=== PATIENT | male | born 1990 | race Caucasian/White ===

== ENCOUNTER 2023-12-31 15:30 | Emergency (ER) | payer OTHER, SELFPAY ==
[2023-12-31] VITALS (19 sets, daily range): BP systolic 115–155; BP diastolic 57–78; PULSE 88–108; RESP 16–20; TEMP 36.6–39.6; O2SAT 95–100; BMI 22.3
[2023-12-31] MEDS: SODIUM CHLORIDE 0.9% 1,000 ML 1000 ML IV ×2 (16:05→18:47)
[2023-12-31] MEDS: ONDANSETRON 4 MG/2 ML INJ IV ×2 (16:06→18:53)
[2023-12-31 16:10] LABS: Add Manual Diff / Slide Review NO; Basophils Absolute Auto 0 /uL (0-100); Basophils Percent Auto 0.3 % (0-2); Eosinophils Absolute Auto 0 /uL (0-450); Hematocrit 45.4 % (41-53); Hemoglobin 15.9 g/dL (13.5-17.5); Lymphocytes Absolute Auto 700 /uL (1100-4500); Lymphocytes Percent Auto 6.7 % (25-40); Mean Corpuscular Hemoglobin 29.7 PG (26-34); Monocytes Absolute Auto 1100 /uL (0-900); Neutrophils Absolute Auto 8000 /uL (1500-7000); Platelet Count 226 X10^3/uL (150-400); Red Blood Cell Count 5.34 X10^6/uL (4.5-5.9); Red Cell Distribution Width 12.9 % (11.6-14.8); White Blood Cell Count 9.7 X10^3/uL (4.5-11.0)
[2023-12-31 16:22] LABS: Alanine Aminotransferase 26 IU/L (<50); Albumin 4.6 g/dL (3.5-5.0); Albumin Globulin Ratio 1.5 (1.0-2.8); Alkaline Phosphatase 42 U/L (38-126); Aspartate Aminotransferase 36 IU/L (17-59); BUN Creatinine Ratio 9.7 (6-22); Bilirubin Total 0.9 mg/dL (0.2-1.3); Blood Urea Nitrogen 10 mg/dL (9-20); Calcium 8.9 mg/dL (8.4-10.2); Carbon Dioxide 23 mmol/L (22-32); Chloride 100 mmol/L (98-107); Estimated Glomerular Filt Rate > 60 mL/min (>60); Glucose 110 mg/dL (70-100); HEMOLYSIS 43 (0-50); Lipase 59 U/L (23-300); Potassium 3.6 mmol/L (3.4-5.1); Sodium 134 mmol/L (137-145); Total Protein 7.6 g/dL (6.3-8.2)
[2023-12-31 17:15] LABS: COVID19 -Nasal RAPID Negative (Negative)
[2023-12-31 17:38] LABS: Bacteria Urine Occasional (0-1); RBC Urine 0-1/HPF (0-5/HPF); Squamous Epithelial Cell Urine 1-5 /HPF (0-5/HPF); Urine Volume 10mL (spun); WBC Urine 1-5/HPF (0-5/HPF)
[2023-12-31 17:39] LABS: Culture Indicated Urine Cult Not Indicated; Hyaline Casts Urine 0-1/LPF; Mucus Urine 1+ (Negative)
--- NOTE | 2023-12-31 18:27 | ED_ITS ---
HPI - Abdominal Pain General Chief Complaint: Abdominal Pain Stated Complaint: bloody diarrhea, abd pain Time Seen by Provider: 12/31/23 16:56 Source: patient and RN notes reviewed Mode of arrival: Ambulatory Limitations: no limitations History of Present Illness HPI narrative: 33-year-old male with complaint of fevers, chills, nausea but no vomiting. Patient has had frequent bloody diarrhea mixed in with watery stools for the past 2 or 3 days. Patient states he has had a little bit of abdominal pain in his lower abdomen. Denies any chest pain or shortness of breath. States he has not had any vomiting. No back or flank pain. He states he has not had any urinary changes. No lightheadedness or passing out. States he presents his symptoms have been persistent. Notes his had similar symptoms although not as intense in his already starting to improve. Otherwise healthy denies any daily medical problems. Denies any prior surgeries. Reports allergy to penicillin. No tobacco, uses 2-3 alcoholic drinks daily, no recreational drugs. Patient denies any long distance travel atypical or suspicious foods states his only sick contact has been his . Related Data Previous Rx's Medication Instructions Recorded azithromycin 500 mg tablet 500 mg PO DAILY 3 days #3 tabs 12/31/23 Allergies Allergy/AdvReac Type Severity Reaction Status Date / Time Penicillins Allergy Unknown Verified 12/31/23 18:39 Review of Systems Review of Systems ROS Unobtainable: All systems reviewed & are unremarkable except as noted in HPI and below Patient History alcohol intake frequency: 3 or more drinks per day Substance Use Type: does not use Exam Narrative Exam Narrative: GENERAL: Alert and oriented x three, male in mild distress. Patient is very warm to the touch. HEENT: Head normocephalic, atraumatic, EOMI, pupils reactive, face symmetric, moist mucous membranes NECK: Supple, full range of motion CARDIOVASCULAR: Regular rate and rhythm without murmurs, rubs or gallops. RESPIRATORY: Breath sounds equal bilaterally, no wheezes rales or rhonchi. No tachypnea or accessory muscle use. ABDOMEN: Soft, nontender. Normoactive bowel sounds all 4 quadrants. No guarding or rebound, rigidity, no mass : No CVA tenderness EXTREMITIES: Normal range of motion, no clubbing or edema. Neurovascularly intact NEUROLOGICAL: Cranial nerves II through XII grossly intact. Moving all extremities SKIN: Warm, dry, no petechiae, no rashes or lesions. Initial Vital Signs Initial Vital Signs: Vital Signs Temperature 99.0 F 12/31/23 15:39 Pulse Rate 99 H 12/31/23 15:39 Respiratory Rate 16 12/31/23 15:39 Blood Pressure 131/77 12/31/23 15:39 Pulse Oximetry 96 12/31/23 15:39 Oxygen Delivery Method Room Air 12/31/23 15:39 Course Orders Ordered: ED Orders 12/31/23 21:18 GI Panel (Film Array) Stat Discontinued Medications Azithromycin (Azithromycin 250 Mg Tablet) 500 mg PO NOW ONE Stop: 12/31/23 23:02 Last Admin: 12/31/23 23:12 Dose: 500 mg Documented By: TIFFANY Sodium Chloride (Normal Saline 0.9%) 1,000 mls @ 1,000 mls/hr IV BOLUS ONE Stop: 12/31/23 16:58 Last Infusion: 12/31/23 16:58 Dose: Infused Documented By: Admin: 12/31/23 16:05 Dose: 1,000 mls/hr Documented By: CARMEN Sodium Chloride (Normal Saline 0.9%) 1,000 mls @ 1,000 mls/hr IV BOLUS ONE Stop: 12/31/23 19:37 Last Infusion: 12/31/23 20:27 Dose: Infused Documented By: Admin: 12/31/23 18:47 Dose: 1,000 mls/hr Documented By: TIFFANY Ketorolac Tromethamine (Ketorolac 30 Mg/Ml Vial) 15 mg IV NOW ONE Stop: 12/31/23 18:39 Last Admin: 12/31/23 18:47 Dose: 15 mg Documented By: TIFFANY Ondansetron HCl (Ondansetron 4 Mg/2 Ml Inj) 4 mg IV NOW PRN PRN Reason: Nausea And Vomiting Last Admin: 12/31/23 16:06 Dose: 4 mg Documented By: CARMEN Ondansetron HCl (Ondansetron 4 Mg Odt) 4 mg PO NOW PRN PRN Reason: Nausea And Vomiting Ondansetron HCl (Ondansetron 4 Mg/2 Ml Inj) 4 mg IV NOW ONE Stop: 12/31/23 18:50 Last Admin: 12/31/23 18:53 Dose: 4 mg Documented By: TIFFANY Ondansetron HCl (Ondansetron 4 Mg Odt Prepack) 1 bottle MISC DIRECTED ONE Stop: 12/31/23 23:02 Last Admin: 12/31/23 23:12 Dose: 1 bottle Documented By: TIFFANY Vital Signs Vital signs: Vital Signs - 8 hr 12/31/23 20:00 12/31/23 20:00 12/31/23 20:30 Temperature Pulse Rate 89 90 Respiratory Rate Blood Pressure 118/60 Pulse Oximetry 95 98 Oxygen Delivery Method Room Air 12/31/23 20:30 12/31/23 21:00 12/31/23 21:00 Temperature Pulse Rate 93 H Respiratory Rate 19 Blood Pressure 124/66 125/69 Pulse Oximetry 99 Oxygen Delivery Method Room Air 12/31/23 21:20 12/31/23 21:20 12/31/23 21:30 Temperature 99.7 F H Pulse Rate 108 H Respiratory Rate 20 Blood Pressure 155/77 H 146/75 H Pulse Oximetry 99 Oxygen Delivery Method Room Air 12/31/23 21:30 12/31/23 22:00 12/31/23 22:00 Temperature Pulse Rate 100 H 103 H Respiratory Rate 20 Blood Pressure 140/78 Pulse Oximetry 98 97 Oxygen Delivery Method Room Air Room Air 12/31/23 22:30 12/31/23 22:30 12/31/23 23:00 Temperature Pulse Rate 105 H Respiratory Rate 19 Blood Pressure 139/73 115/57 L Pulse Oximetry 97 Oxygen Delivery Method Room Air 12/31/23 23:00 12/31/23 23:30 12/31/23 23:30 Temperature 97.8 F Pulse Rate 101 H 102 H Respiratory Rate 18 16 Blood Pressure 120/60 Pulse Oximetry 97 96 Oxygen Delivery Method Room Air MDM - Abdominal Pain Lab Data 12/31/23 15:15 12/31/23 15:15 Labs: Lab Results 12/31/23 12/31/23 12/31/23 Range/Units 15:15 16:00 17:00 WBC 9.7 (4.5-11.0) X10^3/uL RBC 5.34 (4.5-5.9) X10^6/uL Hgb 15.9 (13.5-17.5) g/dL Hct 45.4 (41-53) % MCV 85.0 (80-100) fL MCH 29.7 (26-34) PG MCHC 35.0 (30-36) % RDW 12.9 (11.6-14.8) % Plt Count 226 (150-400) X10^3/uL Neut % (Auto) 82.0 H (50-75) % Lymph % (Auto) 6.7 L (25-40) % [place] % (Auto) 11.0 (3-14) % Eos % (Auto) 0.0 L (2-4) % Baso % (Auto) 0.3 (0-2) % Neut # (Auto) 8000 H (6900-7118) /uL Lymph # (Auto) 700 L (2393-4442) /uL [place] # (Auto) 1100 H (0-900) /uL Eos # (Auto) 0 (0-450) /uL Baso # (Auto) 0 (0-100) /uL Sodium 134 L (137-145) mmol/L Potassium 3.6 (3.4-5.1) mmol/L Chloride 100 (98-107) mmol/L Carbon Dioxide 23 (22-32) mmol/L BUN 10 (9-20) mg/dL Creatinine 1.03 (0.66-1.25) mg/dL Estimated GFR > 60 (>60) mL/min BUN/Creatinine Ratio 9.7 (6-22) Glucose 110 H (70-100) mg/dL Calcium 8.9 (8.4-10.2) mg/dL Total Bilirubin 0.9 (0.2-1.3) mg/dL AST 36 (17-59) IU/L ALT 26 (<50) IU/L Alkaline Phosphatase 42 (38-126) U/L Total Protein 7.6 (6.3-8.2) g/dL Albumin 4.6 (3.5-5.0) g/dL Globulin 3.0 (1.7-4.1) g/dL Albumin/Globulin Ratio 1.5 (1.0-2.8) Lipase 59 (23-300) U/L Urine RBC 0-1/hpf (0-5/HPF) Urine WBC 1-5/hpf (0-5/HPF) Ur Squamous Epith Cells 1-5 /hpf (0-5/HPF) Urine Bacteria Occasional (0-1) (None) Hyaline Casts 0-1/lpf (None) Urine Mucus 1+ H (Negative) Ur Culture Indicated? Cult not indicated Vol Urine Centrifuged 10ml (spun) Stl C. cayetanensis PCR (Not Detect) Stool Rotavirus (PCR) (Not Detect) Stool Adenovirus (PCR) (Not Detect) Stool Astrovirus (PCR) (Not Detect) Stool Cryptosporidium PCR (Not Detect) Stl E.coli Shiga Tox PCR (Not Detect) St Sh/Enteroin Ecoli PCR (Not Detect) Stl Enterotoxigenic E PCR (Not Detect) Stool EPEC (PCR) (Not Detect) Stl E. histolytica PCR (Not Detect) Stool Giardia Lamblia PCR (Not Detect) Stool Sapovirus (PCR) (Not Detect) Stl P. shigelloides PCR (Not Detect) St Y.enterocolitica PCR (Not Detect) Stool Vibrio (PCR) (Not Detect) Stl Vibrio cholerae PCR (Not Detect) Stl Enteroaggr Ecoli PCR (Not Detect) Stl Norovirus GI/GII PCR (Not Detect) Campylobacter (PCR) (Not Detect) C. difficile Tox (PCR) (Not Detect) SARS-CoV-2 (PCR) Negative (Negative) Salmonella (PCR) (Not Detect) 12/31/23 Range/Units 21:18 WBC (4.5-11.0) X10^3/uL RBC (4.5-5.9) X10^6/uL Hgb (13.5-17.5) g/dL Hct (41-53) % MCV (80-100) fL MCH (26-34) PG MCHC (30-36) % RDW (11.6-14.8) % Plt Count (150-400) X10^3/uL Neut % (Auto) (50-75) % Lymph % (Auto) (25-40) % [place] % (Auto) (3-14) % Eos % (Auto) (2-4) % Baso % (Auto) (0-2) % Neut # (Auto) (2418-6648) /uL Lymph # (Auto) (5027-6656) /uL [place] # (Auto) (0-900) /uL Eos # (Auto) (0-450) /uL Baso # (Auto) (0-100) /uL Sodium (137-145) mmol/L Potassium (3.4-5.1) mmol/L Chloride (98-107) mmol/L Carbon Dioxide (22-32) mmol/L BUN (9-20) mg/dL Creatinine (0.66-1.25) mg/dL Estimated GFR (>60) mL/min BUN/Creatinine Ratio (6-22) Glucose (70-100) mg/dL Calcium (8.4-10.2) mg/dL Total Bilirubin (0.2-1.3) mg/dL AST (17-59) IU/L ALT (<50) IU/L Alkaline Phosphatase (38-126) U/L Total Protein (6.3-8.2) g/dL Albumin (3.5-5.0) g/dL Globulin (1.7-4.1) g/dL Albumin/Globulin Ratio (1.0-2.8) Lipase (23-300) U/L Urine RBC (0-5/HPF) Urine WBC (0-5/HPF) Ur Squamous Epith Cells (0-5/HPF) Urine Bacteria (None) Hyaline Casts (None) Urine Mucus (Negative) Ur Culture Indicated? Vol Urine Centrifuged Stl C. cayetanensis PCR Not detected (Not Detect) Stool Rotavirus (PCR) Not detected (Not Detect) Stool Adenovirus (PCR) Not detected (Not Detect) Stool Astrovirus (PCR) Not detected (Not Detect) Stool Cryptosporidium PCR Not detected (Not Detect) Stl E.coli Shiga Tox PCR Not detected (Not Detect) St Sh/Enteroin Ecoli PCR Not detected (Not Detect) Stl Enterotoxigenic E PCR Not detected (Not Detect) Stool EPEC (PCR) Not detected (Not Detect) Stl E. histolytica PCR Not detected (Not Detect) Stool Giardia Lamblia PCR Not detected (Not Detect) Stool Sapovirus (PCR) Not detected (Not Detect) Stl P. shigelloides PCR Not detected (Not Detect) St Y.enterocolitica PCR Not detected (Not Detect) Stool Vibrio (PCR) Not detected (Not Detect) Stl Vibrio cholerae PCR Not detected (Not Detect) Stl Enteroaggr Ecoli PCR Not detected (Not Detect) Stl Norovirus GI/GII PCR Not detected (Not Detect) Campylobacter (PCR) Detected (Not Detect) C. difficile Tox (PCR) Not detected (Not Detect) SARS-CoV-2 (PCR) (Negative) Salmonella (PCR) Not detected (Not Detect) Point of care testing: Urine Dip Bedside Urine Glucose Negative Bedside Urine Bilirubin - Negative Bedside Urine Ketone +++ 80 Urine Specific [place] 1.015 Bedside Urine Occult Blood - Negative Bedside Urine pH 6.0 Bedside Urine Protein ++ 100 Bedside Urine Urobilinogen - Negative Bedside Urine Nitrite - Negative Bedside Urine Leukocytes - Negative Esterase MDM Narrative Medical decision making narrative: 33-year-old male with nausea vomiting, diarrhea which has been somewhat bloody. Patient's abdominal exam is overall benign. Labs are reassuring patient has not had significant diarrhea here in the department has not had persistent vomiting. White count of 9.7 hemoglobin of 15.9 platelets of 226, predominance of neutrophils. Sodium 134 potassium 3.6 chloride of 100 CO2 of 23 BUN 10 creatinine of 1.03 glucose of 110, LFTs are negative, lipase is 59 Urine ketones +80, protein +100 no nitrates or leuks. Urine micro shows 1 white red cell, 1-5 whites, 1-5 squamous 1 bacteria, 1 hyaline cast, 1+ mucus. COVID swab is negative GI panel positive for Campylobacter 1L of saline, 4 Zofran was given. Patient was given a dose of Toradol for fever additional L of fluids. Patient had improvement here in the department, has not any persistent vomiting, had actually some delay is he did not give a big enough stool sample for the 1st GI panel that was sent but had to wait until he is able to give some additional. He is positive for Campylobacter was able to tolerate oral antibiotics here. Prescription sent was for azithromycin. Discussed return precautions all questions answered. Discharge Plan Departure Patient Disposition: Home Clinical Impression: Campylobacter gastrointestinal tract infection Activity Restrictions/Additional Instructions: You have tested positive for bacterial infection called Campylobacter. This is typically can be treated with antibiotics. Prescription for azithromycin was sent to [facility] in [place] Take antibiotics until completed. Can take antinausea medication 1 tablet every 6 hours as needed. Please return for persistent fevers, if you are having new or worsening abdominal back or flank pain, persistent vomiting, signs of dehydration, if you are having worsening black or bloody stools, lightheadedness or passing out or other new or concerning changes. Prescriptions: New azithromycin 500 mg tablet 500 mg PO DAILY 3 Days Qty: 3 0RF Referrals: Miscellaneous,[facility] [Primary Care Provider] - Stand Alone Forms: Patient Portal/API
[2023-12-31] MEDS: KETOROLAC 30 MG/ML VIAL 15 MG IV (18:47)
--- NOTE | 2023-12-31 20:22 | PC.NURSE ---
provided snack and water to assist with additional stool sample collection
--- NOTE | 2023-12-31 21:27 | PC.NURSE ---
Stool handle and vent machine operator delivered to lab. reprographics technician Yoko received the sample.
[2023-12-31 22:47] LABS: Adenovirus F 40/41 Not Detected (Not Detect); Astrovirus Not Detected (Not Detect); Campylobacter Detected (Not Detect); Clostridium difficile toxin AB Not Detected (Not Detect); Cryptosporidium Not Detected (Not Detect); Cyclospora cayetanensis Not Detected (Not Detect); Entamoeba histolytica Not Detected (Not Detect); Enteroaggregative E.coli Not Detected (Not Detect); Enteropathogenic E.coli Not Detected (Not Detect); Enterotoxigenic E.coli It/st Not Detected (Not Detect); Giardia lamblia Not Detected (Not Detect); Norovirus GI/GII Not Detected (Not Detect); Plesiomonsa shigelloides Not Detected (Not Detect); Rotavirus A Not Detected (Not Detect); Salmonella Not Detected (Not Detect); Sapovirus Not Detected (Not Detect); Shiga-like toxin-prod E.coli Not Detected (Not Detect); Shigella/Enteroinvasive E.coli Not Detected (Not Detect); Vibrio Not Detected (Not Detect); Vibrio cholerae Not Detected (Not Detect); Yersinia enterocolitica Not Detected (Not Detect)
--- NOTE | 2023-12-31 23:00 | PC.NURSE ---
Notified Dr. Mills that lab called and reported patient is positive for campylobacter in his stool.
[2023-12-31] MEDS: AZITHROMYCIN 250 MG TABLET 500 MG PO (23:12)
[2023-12-31] MEDS: ONDANSETRON 4 MG ODT PREPACK 1 BOTTLE MISC (23:12)
== END 2023-12-31 23:42 | disposition home or self-care (01) ==
PROVIDERS: Emergency Medicine; Emergency Provider Emergency Medicine
DX: A04.5 Campylobacter enteritis (principal)
CPT/HCPCS: 36415; 80053; 81003; 81015; 83690; 85025; 87507; 87635; 96374; 96375; 96376; 99284; J1885; J2405